=== PATIENT | female | born 1995 | race Caucasian/White ===

== ENCOUNTER 2017-12-03 08:05 | Outpatient (CLI) | payer OTHER | END 2017-12-03 16:38 | disposition home or self-care (01) | LOC: LAB 08:05 | DX: R42 Dizziness and giddiness (principal); R10.84 Generalized abdominal pain; R63.0 Anorexia; Z13.89 Encounter for screening for other disorder; Z13.220 Encounter for screening for lipoid disorders; Z11.3 Encounter for screening for infections with a predominantly sexual mode of transmission; R06.02 Shortness of breath ==

== ENCOUNTER 2017-12-03 09:21 | Outpatient (CLI) | payer OTHER | END 2017-12-03 09:33 | disposition home or self-care (01) | LOC: RAD 09:21 | DX: R10.84 Generalized abdominal pain (principal); R42 Dizziness and giddiness; R63.0 Anorexia; Z13.89 Encounter for screening for other disorder; Z13.220 Encounter for screening for lipoid disorders; Z11.3 Encounter for screening for infections with a predominantly sexual mode of transmission; R06.02 Shortness of breath ==

== ENCOUNTER 2017-12-18 10:55 | Outpatient (CLI) | payer OTHER | END 2017-12-18 11:30 | disposition home or self-care (01) | LOC: SONOGRAMA 10:55 | DX: R10.84 Generalized abdominal pain (principal) ==

== ENCOUNTER 2017-12-18 11:29 | Outpatient (CLI) | payer OTHER | END 2017-12-18 12:42 | disposition home or self-care (01) | LOC: LAB 11:29 | DX: K62.5 Hemorrhage of anus and rectum (principal); R10.84 Generalized abdominal pain ==

== ENCOUNTER 2020-01-06 06:48 | Outpatient (CLI) | payer OTHER | END 2020-01-06 07:01 | disposition home or self-care (01) | LOC: LAB 06:48 | PROVIDERS: ATTEND General Practice | DX: R63.0 Anorexia (principal); R22.9 Localized swelling, mass and lump, unspecified; R50.9 Fever, unspecified; R53.1 Weakness; R22.1 Localized swelling, mass and lump, neck; Z13.89 Encounter for screening for other disorder; Z13.220 Encounter for screening for lipoid disorders; Z11.3 Encounter for screening for infections with a predominantly sexual mode of transmission; Z13.1 Encounter for screening for diabetes mellitus; Z13.228 Encounter for screening for other metabolic disorders; Z11.4 Encounter for screening for human immunodeficiency virus [HIV] ==

== ENCOUNTER → 2020-01-12 10:12 | Outpatient (CLI) | payer OTHER | END | disposition home or self-care (01) | LOC: LAB 10:12 | PROVIDERS: ATTEND Pediatrics Pediatric Gastroenterology | DX: R63.0 Anorexia (principal); R22.43 Localized swelling, mass and lump, lower limb, bilateral; R53.1 Weakness; R22.1 Localized swelling, mass and lump, neck; Z13.89 Encounter for screening for other disorder; Z13.220 Encounter for screening for lipoid disorders; Z11.3 Encounter for screening for infections with a predominantly sexual mode of transmission; Z13.228 Encounter for screening for other metabolic disorders; R50.9 Fever, unspecified; Z11.4 Encounter for screening for human immunodeficiency virus [HIV] ==

== ENCOUNTER 2020-01-28 08:52 | Outpatient (CLI) | payer OTHER | END 2020-01-28 08:59 | disposition home or self-care (01) | LOC: SONOGRAMA 08:52 → MAMO-SONO 10:00 | PROVIDERS: ATTEND General Practice | DX: E04.2 Nontoxic multinodular goiter (principal); R22.9 Localized swelling, mass and lump, unspecified; R53.1 Weakness; R63.0 Anorexia; R22.1 Localized swelling, mass and lump, neck; Z13.89 Encounter for screening for other disorder; Z13.220 Encounter for screening for lipoid disorders; Z11.3 Encounter for screening for infections with a predominantly sexual mode of transmission; Z13.1 Encounter for screening for diabetes mellitus; R50.9 Fever, unspecified ==

== ENCOUNTER 2020-03-09 08:32 | Outpatient (CLI) | payer OTHER | END 2020-03-09 08:44 | disposition home or self-care (01) | LOC: SONOGRAMA 08:32 → MAMO-SONO 08:45 | PROVIDERS: ATTEND General Practice | DX: M25.531 Pain in right wrist (principal); M79.641 Pain in right hand ==

== ENCOUNTER 2020-09-01 11:44 | Outpatient (CLI) | payer OTHER | END 2020-09-01 11:50 | disposition home or self-care (01) | LOC: SONOGRAMA 11:44 | PROVIDERS: ATTEND Specialist | DX: R10.2 Pelvic and perineal pain (principal) ==

== ENCOUNTER → 2020-09-27 09:07 | Outpatient (CLI) | payer OTHER | END | disposition home or self-care (01) | LOC: MRI 09:07 | PROVIDERS: ATTEND General Practice | DX: M25.561 Pain in right knee (principal) | CPT/HCPCS: 73721 ==